=== PATIENT | female | born 2000 | race Two or more races ===

== ENCOUNTER 2024-09-29 12:55 | Emergency (ER) | payer MEDICAID, SELFPAY ==
--- NOTE | 2024-09-29 13:39 | XR_ITS ---
Examination: CT abdomen with intravenous contrast CT pelvis with intravenous contrast 2-D coronal reconstructions 2-D sagittal reconstructions Date and time of exam:September 29, 2024 1602 hrs. Indications: Onset lower abdominal pain today. CTDI: vol (mGy) 10.4 DLP: (mGycm) 529 Technique: Multiple axial sections of the abdomen and pelvis have been obtained. 64 slice high-resolution scanner used. 3 mm axial sections have been obtained, post intravenous injection 60 cc [id number] 2-D sagittal, coronal reconstructions obtained. Low dose protocols were performed. One or more of the following dose reduction techniques were used; automated exposure control, adjustment of the mA and/or KV according to patient size, use of iterative reconstruction technique. Findings: No focal liver or splenic lesions Gallbladder wall appears thickened axial image 86 No pancreatic or adrenal mass Mild bilateral renal parenchymal scar formation No renal or ureteral calculi, no hydronephrosis 15 mm fat-containing umbilical hernia Abdominal aorta intact not enlarged Normal appendix Partially ruptured right adnexal cyst, 20 mm with free fluid in the right adnexal region and pelvis Urinary bladder intact Impression: Recommend hepatobiliary sonography follow-up to exclude acute acalculous cholecystitis Partially ruptured right adnexal cyst, 20 mm, with free fluid in the right adnexal region, recommend pelvic sonography follow-up Normal appendix
--- NOTE | 2024-09-29 13:40 | PD.EDRME ---
Rapid Medical Screening Exam RME Arrival date/time: 09/29/24 12:55 Chief Complaint: Abdominal Pain Time Seen by Provider: 09/29/24 13:24 Vital signs: Vital Signs Temperature 98.1 F 09/29/24 13:42 Pulse Rate 77 09/29/24 13:42 Respiratory Rate 18 09/29/24 13:42 Blood Pressure 126/77 09/29/24 13:42 Pulse Oximetry (%) 99 09/29/24 13:42 Oxygen Delivery Method Room Air 09/29/24 13:42 RME Narrative: Lower abdominal pain, nausea/vomiting x 1 day
[2024-09-29 13:42] VITALS: BP 126/77; PULSE 77; RESP 18; TEMP 36.7; O2SAT 99; BMI 28.8
[2024-09-29 13:56] LABS: Basophils % (Auto) 0 % (0-2.5); Eosinophils % (Auto) 0 % (0-10); Hematocrit 36.7 % (36.0-46.0); Hemoglobin 12.3 g/dL (12.0-16.0); Immature Granulocytes % (Auto) 0 % (0-0); Immature Granulocytes Auto 0.04 Thou/mm3 (0.00-0.00); Lymphocytes # (Auto) 1.1 Thou/mm3 (1.0-4.8); Lymphocytes % (Auto) 9 % (10-50); Mean Corpuscular HGB Conc 33.5 g/dl (31.0-37.0); Mean Corpuscular Hemoglobin 29.8 pg (25.0-35.0); Mean Corpuscular Volume 89 fL (80-100); Monocytes # (Auto) 0.4 Thou/mm3 (0.0-0.8); Monocytes % (Auto) 4 % (0-12); Neutrophils # (Auto) 10.7 Thou/mm3 (1.8-7.7); Neutrophils % (Auto) 87 % (37-80); Nucleated Red Blood Cell % 0 /100 WBC (0); Platelet Count 311 Thou/mm3 (140-440); RDW Standard Deviation 41.3 fL (36.4-46.3); Red Blood Count 4.13 Miln/mm3 (4.00-5.20); White Blood Count 12.3 Thou/mm3 (3.6-11.0)
[2024-09-29 14:37] LABS: Albumin, Serum 5.5 gm/dL (3.5-5.0); Albumin/Globulin Ratio 2.3 (1.2-2.2); Alkaline Phosphatase 65 U/L (46-116); Anion Gap 9 (7-16); Aspartate Amino Transferase 13 U/L (0-34); BUN/Creatinine Ratio 9 Ratio (12-20); Bilirubin,Total 0.7 mg/dL (0.3-1.2); Blood Urea Nitrogen 7 mg/dL (9-23); Calcium 10.3 mg/dL (8.3-10.6); Calcium (Corrected) 10.3 mg/dL (8.5-10.1); Carbon Dioxide 23.7 mMol/L (20.0-31.0); Chloride 104 mMol/L (98-107); Creatinine (Component) 0.8 mg/dL (0.6-1.3); Estimated Creatinine Clearance 115.4 mL/min (>60); Globulin 2.4 gm/dL (2.3-3.5); Glucose 117 mg/dL (74-106); Lipase 38 U/L (12-53); Osmolality,Calculated 272 (275-295); Potassium 3.8 mMol/L (3.4-5.1); Sodium 137 mMol/L (136-145); Total Protein 7.9 gm/dL (5.7-8.2); eGFR > 60 See Note
[2024-09-29 14:48] LABS: Alanine Aminotransferase 7 U/L (10-49)
[2024-09-29 15:09] LABS: Collection Type, Urine Clean Catch
[2024-09-29 15:23] LABS: Bilirubin,Urine Negative (Negative); Blood,Urine Negative (Negative); Clarity,Urine Clear (Clear/Hazy); Color,Urine Yellow (Lt Yel-Yel); Glucose, Urine Negative (Negative); Ketones,Urine 4+ (Negative); Leukocyte Esterase,Urine Positive (Negative); Nitrite,Urine Negative (Negative); PH,Urine 7.5 (5.0-7.0); Protein,Urine 1+ (Neg - Trace); RBC,Urine 8 /hpf (0-3); Specific Gravity,Urine 1.031 (1.001-1.035); Squamous Epithelial Cell,Urine 9 /hpf (0-5); Urobilinogen,Urine Negative mg/dL (0.0-1.0); WBC,Urine 4 /hpf (0-5)
[2024-09-29 15:47] LABS: HCG Qualitative,Urine Negative
[2024-09-29] MEDS: SODIUM CHLORIDE 0.9% 1000 ML 1,000 ML 999 ML IV (16:19)
[2024-09-29] MEDS: ONDANSETRON INJ 2 MG/ML INJ 2 ML 4 MG IV (16:39)
--- NOTE | 2024-09-29 16:59 | XR_ITS ---
Examination: Pelvic ultrasound, transabdominal, complete Technique: Transabdominal ultrasound of the pelvis performed using grayscale imaging Date and time of exam: September 29, 2024 at 1816 hrs. Indications: Pelvic pain beginning 2 days ago Findings: Uterus 7.2 x 4.0 x 4.3 cm anteverted Free fluid adjacent to the anterior margin of the uterus No uterine mass or intrauterine gestation Endometrial stripe 0.6 cm Right ovary 2.3 x 1.7 x 1.4 cm arterial flow Left ovary obscured by bowel gas This study does not demonstrate the partially ruptured right adnexal cyst noted on the CT pelvis portion of the examination today Impression: Free fluid anterior margin of the uterus No uterine mass or intrauterine gestation The CT finding of a partially ruptured right adnexal cyst appears to be a definite finding
[2024-09-29] MEDS: ACETAMINOPHEN 500 MG TABLET 1000 MG PO (17:05)
[2024-09-29] MEDS: DICYCLOMINE 10 MG CAPSULE 20 MG PO (17:05)
--- NOTE | 2024-09-29 20:21 | EDNOTE_ITS ---
<Statement entered by Dianna Oshea MD - 09/29/24 23:19> As co-signing physician, I was present and available for consult prn. I concur with the plan and care as documented by the midlevel provider. ED General RME/HPI General Chief complaint: Abdominal Pain Stated complaint: ABD PAIN x 1 DAY, VOMITING Time Seen by Provider: 09/29/24 13:24 Arrival date/time: 09/29/24 12:55 CC: Low abdominal pain with nausea vomiting HPI ongoing for the past 24 hours similar episodes 2 months ago, at that time was given medicines from the clinic and it went better. He had another episode 1 month ago that spontaneously resolved. Currently patient denies fever chest pain shortness of breath or difficulty breathing. RME / HPI RME / HPI narrative: Lower abdominal pain, nausea/vomiting x 1 day Related Data Previous Rx's ?Medication ?Instructions ?Recorded meloxicam 7.5 mg tablet 7.5 mg PO QDAY #10 tabs 09/29/24 ondansetron 4 mg disintegrating 4 mg PO Q8H #10 tabs 09/29/24 tablet Allergies Allergy/AdvReac Type Severity Reaction Status Date / Time No Known Allergies Allergy Verified 09/29/24 12:57 Review of Systems Review of Systems Narrative Review of Systems: GEN: No fever, no chills, no weight loss EYES: No discharge, no visual changes, no pain HEENT: No ear pain, no congestion, no sore throat PULM: No shortness of breath, no cough, no congestion CV: No chest pain, no dyspnea on exertion, no palpitations GI: No nausea, no vomiting, no diarrhea, + pain, no constipation : No frequency, no urgency, no dysuria MUSC/SKEL: No joint pain, no back pain SKIN: No rash PSYCH: No hallucinations, no depression HEME/LYMPH: No easy bleeding or bruising tendencies NEURO: No weakness, no headache Past Medical History Past Medical History CARDIAC: Negative Cardiac Disorders RESPIRATORY: Negative Asthma GENITOURINARY: Negative Renal Disease ENDOCRINE: Negative Diabetes Mellitus Type 2 HEMATOLOGIC: Negative Sickle Cell Disease Social History SMOKING STATUS: Never smoker ED Exam Narrative Physical exam: [General: Not in any acute distress Head normocephalic HEENT: Within acceptable limits Neck is supple nontender Chest equal chest rise nontender to palpation Respiratory: Clear to auscultation no wheezes crackles or rubs CV: Rate rhythm is regular no murmurs rubs or clicks Abdomen is distended secondary to body habitus soft mild diffuse lower abdomen tenderness, no tenderness in the right upper quadrant epigastrium or left upper quadrant with deep palpation no reflexive guarding or rebound tenderness. Back: No CVA tenderness no spinous process tenderness from cervical spine thoracic and lumbar spine Skin: Intact no petechiae rash induration ulceration or crepitus Extremities: Moving all extremity against resistance cap refill less than 2 seconds neurosensory intact Neuro: Awake alert oriented x3 Glascow coma 15 no focal deficits] Course Quality Measures none Orders Category Date Time Status CT Screening NOW Care 09/29/24 13:[address] abdomen pelvis w con Stat Exams 09/29/24 13:39 Completed US pelvic complete Stat Exams 09/29/24 16:59 Completed CBC Stat Lab 09/29/24 13:44 Completed CMP [Comprehensive Metabolic Panel] Stat Lab 09/29/24 13:44 Completed HCG Qualitative,Urine Stat Lab 09/29/24 14:55 Completed Lipase Stat Lab 09/29/24 13:44 Completed UA [Urinalysis] Stat Lab 09/29/24 14:55 Completed Acetaminophen Tab [Tylenol ES Tab] Med 09/29/24 16:58 Discontinued 1,000 mg PO X1 ONE Dicyclomine [Bentyl] Med 09/29/24 16:58 Discontinued 20 mg PO X1 ONE Ondansetron Inj [Zofran Inj] Med 09/29/24 15:32 Discontinued 4 mg IV X1 ONE Sodium Chloride 0.9% 1000 ml [Ns] 1,000 ml Med 09/29/24 15:33 Discontinued IV 999 mls/hr Vital Signs Vital signs: Vital Signs Temperature 98.1 F 09/29/24 13:42 Pulse Rate 77 09/29/24 13:42 Respiratory Rate 18 09/29/24 13:42 Blood Pressure 126/77 09/29/24 13:42 Pulse Oximetry (%) 99 09/29/24 13:42 Oxygen Delivery Method Room Air 09/29/24 13:42 [facility] Patient data External records reviewed:: [facility] previous records Clinical information provided by:: patient Social determinants that could affect healthcare access:: none Patient has the following chronic illnesses:: None How is presenting disease/condition affected by chronic disease/condition?: u neffected by Evaluation data The following diagnostics were reviewed and interpreted by me:: lab results and radiology exam(s) Lab and/or radiology exams considered but not ordered:: Ultrasound of the pelvis shows the patient has a partially ruptured ovarian cyst CT shows no acute finding other than ruptured cyst mentioned above CBC shows no acute leukocytosis anemia thrombocytopenia. CMP shows no significant electrolyte imbalances renal impairment transaminitis or T. bili elevation Urine negative for acute urinary tract infection. Interpretation Summary: No acute finding other than ruptured ovarian cyst which is most likely the cause of her pain. Patient be discharged home with pain medicine and nausea medicine to follow-up with her primary care provider. Medications Medications considered but not ordered:: None Medication administrations:: Medication Administration History Discontinued Medications Acetaminophen (Acetaminophen 500 Mg Tablet) 1,000 mg PO X1 ONE Stop: 09/29/24 16:59 Last Admin: 09/29/24 17:05 Dose: 1,000 mg Documented By: Dicyclomine HCl (Dicyclomine 10 Mg Capsule) 20 mg PO X1 ONE Stop: 09/29/24 16:59 Last Admin: 09/29/24 17:05 Dose: 20 mg Documented By: Sodium Chloride (Ns) 1,000 mls @ 999 mls/hr IV .Q1H1M ONE Stop: 09/29/24 16:33 Last Infusion: 09/29/24 17:07 Dose: Infused Documented By: Admin: 09/29/24 16:19 Dose: 999 mls/hr Documented By: Ondansetron HCl (Ondansetron Inj 2 Mg/Ml Inj 2 Ml) 4 mg IV X1 ONE; Protocol Stop: 09/29/24 15:33 Last Admin: 09/29/24 16:39 Dose: 4 mg Documented By: SL None Consultations Consultation(s) initiated? (list below): No Diagnosis Differential Diagnosis ED Complaint MDM: Ruptured ovarian cyst cholelithiasis cholecystitis Most likely diagnosis given after review of the tests above:: Ruptured ovarian cyst abdominal pain nausea Admission Indicated Admission indicated?: not indicated Explain why admission is indicated or not indicated:: Stable for outpatient follow-up Admission Request Was there a request for admission?: No Disposition Plan Disposition Plan: Discharge Discharge Attestation Discharge Attestation: The patient and all family members were given an opportunity to ask questions and understood the discharge instructions. Discharge instructions specifically effects, indications for sooner follow up or return to the emergency department, and the expected course of current diagnosis. Patient condition: Stable Medical Decision Making Differential Diagnosis Differential Diagnosis: Ruptured ovarian cyst cholelithiasis cholecystitis Lab Data 09/29/24 13:44 09/29/24 13:44 Labs: Lab Results 09/29/24 09/29/24 Range/Units 13:44 14:55 WBC 12.3 H (3.6-11.0) Thou/mm3 RBC 4.13 (4.00-5.20) Miln/mm3 Hgb 12.3 (12.0-16.0) g/dL Hct 36.7 (36.0-46.0) % MCV 89 (80-100) fL MCH 29.8 (25.0-35.0) pg MCHC 33.5 (31.0-37.0) g/dl RDW Std Deviation 41.3 (36.4-46.3) fL Plt Count 311 (140-440) Thou/mm3 Neut % (Auto) 87 H (37-80) % Lymph % (Auto) 9 L (10-50) % [place] % (Auto) 4 (0-12) % Eos % (Auto) 0 (0-10) % Baso % (Auto) 0 (0-2.5) % Neut # (Auto) 10.7 H (1.8-7.7) Thou/mm3 Lymph # (Auto) 1.1 (1.0-4.8) Thou/mm3 [place] # (Auto) 0.4 (0.0-0.8) Thou/mm3 Eos # (Auto) 0.0 (0.0-0.5) Thou/mm3 Baso # (Auto) 0.0 (0.0-0.2) Thou/mm3 Immature Gran # (Auto) 0.04 H (0.00-0.00) Thou/mm3 Absolute Nucleated RBC 0.00 (0.00-0.00) Thou/mm3 Immature Gran % 0 (0-0) % Nucleated RBC % 0 (0) /100 WBC Sodium 137 (136-145) mMol/L Potassium 3.8 (3.4-5.1) mMol/L Chloride 104 (98-107) mMol/L Carbon Dioxide 23.7 (20.0-31.0) mMol/L Anion Gap 9 (7-16) BUN 7 L (9-23) mg/dL Creatinine 0.8 (0.6-1.3) mg/dL Estim Creat Clear Calc 115.4 (>60) mL/min eGFR > 60 (60 - ) See Note BUN/Creatinine Ratio 9 L (12-20) Ratio Glucose 117 H (74-106) mg/dL Calculated Osmolality 272 L (275-295) Calcium 10.3 (8.3-10.6) mg/dL Corrected Calcium 10.3 H (8.5-10.1) mg/dL Total Bilirubin 0.7 (0.3-1.2) mg/dL AST 13 (0-34) U/L ALT 7 L (10-49) U/L Alkaline Phosphatase 65 (46-116) U/L Total Protein 7.9 (5.7-8.2) gm/dL Albumin 5.5 H (3.5-5.0) gm/dL Globulin 2.4 (2.3-3.5) gm/dL Albumin/Globulin Ratio 2.3 H (1.2-2.2) Lipase 38 (12-53) U/L Ur Collection Type Clean Catch Urine Color Yellow (Lt Yel-Yel) Urine Clarity Clear (Clear/Hazy) Urine pH 7.5 H (5.0-7.0) Ur Specific [place] 1.031 (1.001-1.035) Urine Protein 1+ A (Neg - Trace) Urine Glucose (UA) Negative (Negative) Urine Ketones 4+ A (Negative) Urine Blood Negative (Negative) Urine Nitrite Negative (Negative) Urine Bilirubin Negative (Negative) Urine Urobilinogen (Auto) Negative (0.0-1.0) mg/dL Ur Leukocyte Esterase Positive (Negative) Urine RBC 8 H (0-3) /hpf Urine WBC 4 (0-5) /hpf Ur Squamous Epith Cells 9 H (0-5) /hpf Urine Bacteria None (None) Urine HCG, Qual Negative Discharge Plan Plan Patient Disposition: HOME (Self Care) Prescriptions/Referrals Prescriptions/Med Rec: New meloxicam 7.5 mg tablet 7.5 mg PO QDAY Qty: 10 0RF ondansetron 4 mg tablet,disintegrating 4 mg PO Q8H Qty: 10 0RF Referrals: Lorenzo Farris MD [Physician] - In 1 week Eileen Oneal PA-C [Primary Care Provider] - In 1 week Problem List Clinical Impression: Ovarian cyst rupture, Abdominal pain, Nausea Patient/Caregiver Discharge Instructions Education Materials: Abdominal Pain, ED Ovarian Cyst Print Language: Amharic Stand Alone Forms: Gabriela Award Info., Patient Portal Info Letter, Work/School Release PA/BRENT Supervising Physician PA/BRENT Supervising Physician: Marino Johnson ENP
== END 2024-09-29 20:37 | disposition home or self-care (01) ==
PROVIDERS: Physician Assistant; Emergency Provider Emergency Medicine; PCP Physician Assistant
DX: N83.209 Unspecified ovarian cyst, unspecified side (principal)
CPT/HCPCS: 36415; 74177; 76856; 80053; 81001; 81025; 83690; 85025; 96361; 96374; 99285; A4649; J2405; J7030; Q9967; A9270